=== PATIENT | female | born 1965 | race Caucasian/White ===

== ENCOUNTER 2021-03-25 11:17 | Outpatient (REF) | payer OTHER, SELFPAY ==
[2021-03-25 13:30] LABS: COVID-19 Test Negative (Negative)
== END 2021-03-25 11:18 | disposition home or self-care (01) ==
LOC: HO.LAB 11:17
PROVIDERS: Visit Provider Internal Medicine
DX: Z20.822 Contact with and (suspected) exposure to COVID-19 (principal)
CPT/HCPCS: 36415; 87635; C9803

== ENCOUNTER → 2022-03-03 09:55 | Outpatient (BNVA) | payer OTHER, SELFPAY | PROVIDERS: PCP Student in an Organized Health Care Education/Training Program; Visit Provider Nurse Practitioner Family | DX: N20.0 Calculus of kidney (principal) | CPT/HCPCS: 51798; 99202 ==

== ENCOUNTER 2022-04-05 07:36 | Day surgery (SDC) | payer OTHER, SELFPAY ==
--- NOTE | ~2022-04-05 | FL_ITS ---
EXAMINATION: XR FLUOROSCOPY WITH IMAGES CLINICAL INFORMATION: Retrograde, stent COMPARISON: None. TECHNIQUE: Fluoroscopy Supervised By: Dr. Haider Mendez. Fluoroscopy Time: 49 seconds. Cumulative Dose: 21.33 mGy. Images: 3. FINDINGS: There is some contrast in the left urinary tract. No hydronephrosis or extravasation. Final images show distal left ureteral stent in position. FL/FL guidance in OR IMPRESSION: Fluoroscopy for urologic procedures.
[2022-04-05 08:15] VITALS: BMI 31.4
[2022-04-05 08:36] VITALS: BP 139/82; PULSE 93; RESP 16; TEMP 36.6; O2SAT 95
[2022-04-05 08:38] LABS: Glucose, Whole Blood 132 mg/dL (60-115)
[2022-04-05] MEDS: Lactated Ringers 1,000 ML 100 ML IVCONT (08:42)
--- NOTE | 2022-04-05 08:50 | HO.ANESPROP2 ---
[facility] Active Problems Active Problems: All Active Problems (Updated 03/03/22 @ 13:08 by CHARLEEN Brown) Nephrolithiasis (Acute) Kidney stone (Acute) Past Medical History Medical History (Updated 03/03/22 @ 13:08 by CHARLEEN Brown) delivery delivered Diabetes mellitus, type II Hyperlipidemia Hypertension Hypothyroid Kidney stone Nephrolithiasis Family History Family History (Updated 03/03/22 @ 13:06 by CHARLEEN Brown) Other Kidney stone Family history of problems with anesthesia: No Surgical History Surgical History (Updated 03/03/22 @ 13:08 by CHARLEEN Brown) History of lithotripsy Hx of tubal ligation History of Problems with Anesthesia: No Social History Social History (Updated 03/03/22 @ 13:08 by CHARLEEN Brown) Household Members: Family Patient Tobacco Use Status: Never used Tobacco Use of substances other than those prescribed or required for medical reasons: No Are you DNR?: No Advance Directives: No Advance Directives Information Provided: Yes Meds Allergies Allergy/AdvReac Type Severity Reaction Status Date / Time morphine Allergy Unknown fast hr, Unverified 04/01/22 14:30 palpitations, tachycardia, chestpain lisinopril AdvReac Severe Angioedema Verified 04/05/22 08:18 Active Medications: Current Medications Levofloxacin (Levaquin) 500 mg in 100 mls @ 100 mls/hr IV PREOP ONE Stop: 04/05/22 09:05 Lactated Ringer's (Lr) 1,000 mls @ 100 mls/hr IVCONT .Q10H LEOBARDO Last Admin: 04/05/22 08:42 Dose: 100 mls/hr Home Medications Medication Instructions Recorded Confirmed Last Taken Type albuterol sulfate 90 mcg/actuation 2 puff inhalation Q6H PRN wheezing 03/03/22 04/01/22 Unknown History aerosol inhaler amlodipine 10 mg tablet 10 mg PO DAILY 03/03/22 04/01/22 Unknown History blood sugar diagnostic (FreeStyle #10 ea 03/03/22 Unknown History Lite Strips) blood-glucose meter (FreeStyle #1 ea 03/03/22 Unknown History [place] Lite kit) empagliflozin 10 mg tablet 10 mg PO DAILY 03/03/22 04/01/22 Unknown History (Jardiance) lancets 28 gauge (FreeStyle #100 ea 03/03/22 Unknown History Lancets) levothyroxine 150 mcg tablet 150 mcg PO DAILY 03/03/22 04/01/22 Unknown History metformin 1,000 mg tablet 1,000 mg PO BID 03/03/22 04/01/22 Unknown History simvastatin 20 mg tablet 20 mg PO BEDTIME 03/03/22 04/01/22 Unknown History tamsulosin 0.4 mg capsule 0.4 mg PO DAILY 03/03/22 04/01/22 Unknown History Exam Exam Date and Time: April 05, 2022 0850 Height,Weight and Vital Signs: Height 5 ft 1 in Weight 75.296 kg Last Vital Signs Temp 97.9 F 04/05/22 08:36 Pulse 93 04/05/22 08:36 Resp 16 04/05/22 08:36 BP 139/82 04/05/22 08:36 Pulse Ox 95 04/05/22 08:36 O2 Del Method 04/05/22 08:36 Pertinent Lab Results Pertinent Lab Results: Laboratory Tests 04/05/22 08:35 POC Glucose 132 H Airway Mallampati Class: III TM Dist: >3cm Neck ROM: Full Assessment and Plan Assessment Anesthesia Assessment: Anesthesia Plan Discussed and Chart Reviewed Final Anesthetic Review Family History of Problems with Anesthesia: No History of Problems with Anesthesia: No NPO: Yes ASA Class: II Final Preanesthetic Review: No Changes in Pt Med Stat, Meds/Allgs Chart Reviewed, Consent Obtained/Reviewed and Anes Risks/Benef Reviewed Patient Risk: Low Procedure Risk: Low Anesthetic Plan Anesthetic Plan: GA Disposition: Standard PACU
--- NOTE | 2022-04-05 08:51 | MHC.SHP ---
Pre-Procedural Eval Section A Date of Service: 04/05/22 The patient is an INPATIENT: No Changes since office visit: No Cold of Flu in the past 2 weeks, No New Medical Problems, No Changes in Medication and No Patient answered all questions The History & Physical has been completed within 30 days and I have reviewed it.: Yes Section B Chief Complaint: Calculus of kidney Details of Present Illness: left renal pelvic stone Allergies: Allergies Allergy/AdvReac Type Severity Reaction Status Date / Time morphine Allergy Unknown fast hr, Unverified 04/01/22 14:30 palpitations, tachycardia, chestpain lisinopril AdvReac Severe Angioedema Verified 04/05/22 08:18 Review of Systems Sugical H&P ROS: Negative: Constitution, Cardiovascular, Respiratory, Neurological, Psychiatric, Hem-Onc, Allergic/Immunologic, Gastrointestinal, Genitourinary, Musculoskeletal, Integumentary, Endocrine and Eyes/Ears/Nose/Throat Exam Surgical H&P Exam: Normal: HEENT, Normal: Heart, Normal: Lungs, Normal: Extremities, Normal: Abdomen, Normal: Skin and Normal: Neurological Plan Diagnosis/Plan: Unchanged ( cystoscopy, left retrograde, left flexible ureteroscopy laser lithotripsy) I have reviewed the history and physical and performed a pertinent physical examination on my patient. No changes have occurred unless specified. Time Spent With Patient Time: Total time managing care of this patient today ____ minutes.
[2022-04-05 12:04] VITALS: BP 140/82; PULSE 77; RESP 16; TEMP 36.1; O2SAT 100
--- NOTE | 2022-04-05 12:04 | P.OP_ITS ---
Operative Note Operative Note Date of Service: 04/05/22 Narrative: PreOperative Diagnosis: left renal stone 1.8 cm Post Operative Diagnosis: left renal stone 1.8 cm Procedure: - cystoscopy, left retrograde - left dilatation of ureteric orifice under fluoroscopy - left ureteroscopy, laser lithotripsy, stone basketing - modified 22 laser time 200% longer than typical - left stent placement Surgeon: Dr Haider Mendez Anesthesia: General Indications for procedure: 1.8 cm x 1.6 cm left UPJ stone. Prior procedure 2005. Procedure: After informed consent was verified patient was brought to the operating placed in supine position. Anesthesia was administered per protocol. Patient was placed in modified dorsal lithotomy position and prepped and draped in a sterile fashion. Safety pause time-out and side of surgery confirmed. Antibiotics confirmed. 22 Syrian cystoscope was inserted per urethra. Bladder was normal in its entirety. Both ureteric orifices were in normal position. The Left ureteric orifice was cannulated and a retrograde examination was performed. filling defects seen within the left UPJ. 1.8 cm stone.. A Sensor guidewire was placed up to the level of the renal pelvis under fluoroscopy. The rigid cystoscope was removed and the inner cannula of ureteric access sheath was used under fluoroscopy to dilate the ureteric orifice. The Suction 36cm ureteric access sheath was placed and the inner cannula with access wire removed. The digital flexible ureteral scope was placed. the stone was engaged with a 272 micron holmium fiber. Using the [place] settings the stone was broken into small pieces. This took 200% longer than typical. Approximately 48 minutes of lasing time. The stone was large and could only be broken into small pieces slowly. Or when this had been completed debris was scattered throughout the renal pelvis. Laser was used to continue popcorn technique to break the stone in small pieces. We then used a 0 tip basket with multiple passes to remove clot and stone debris that was able to be managed with the basket. The open-ended catheter was used to flush the renal pelvis on multiple occasions. At the completion of the stone procedure a Sensor wire was placed back into the renal pelvis. A 6 Syrian by 22 cm double-J stent was placed into the renal pelvis and bladder under a combination of fluoroscopy and direct visualization. The symphisis pubis was used as a radiographic marker to release the stent and good coil was seen within the bladder confirming position The bladder was emptied. The patient tolerated the procedure well and was extubated in the operating room, and transferred in stable condition to the recovery area. Pathology: Stones Drains: drain is above
[2022-04-05 12:09] VITALS: BP 142/81; PULSE 83; RESP 14; O2SAT 96
[2022-04-05 12:14] VITALS: BP 144/81; PULSE 84; RESP 16; O2SAT 96
[2022-04-05] MEDS: Phenazopyridine HCL 100 MG TABLET PO (12:18)
[2022-04-05 12:19] VITALS: BP 142/88; PULSE 73; RESP 14; O2SAT 95
[2022-04-05 12:27] VITALS: BP 129/80; TEMP 36.6
[2022-04-10 08:54] LABS: Stone Source LEFT RENAL STONE
== END 2022-04-05 13:15 | disposition home or self-care (01) ==
PROVIDERS: PCP Student in an Organized Health Care Education/Training Program; Visit Provider Urology
PROC: (CPT 52356; principal; 2022-04-05 09:00)
DX: N20.0 Calculus of kidney (principal); E11.9 Type 2 diabetes mellitus without complications; E78.5 Hyperlipidemia, unspecified; I10 Essential (primary) hypertension; E03.9 Hypothyroidism, unspecified; Z79.84 Long term (current) use of oral hypoglycemic drugs; Z79.899 Other long term (current) drug therapy; Z88.8 Allergy status to other drugs, medicaments and biological substances; Z87.442 Personal history of urinary calculi
CPT/HCPCS: 52356; 52352; 82365; 82947; 88300; C1758; C1769; C2617; J0131; J1885; J1956; J2405; J3010; Q9967

== ENCOUNTER 2022-04-13 09:55 | Outpatient (REF) | payer OTHER, SELFPAY | END 2022-04-13 09:56 | disposition home or self-care (01) | LOC: HO.LAB 09:55 | PROVIDERS: PCP Student in an Organized Health Care Education/Training Program; Visit Provider Urology | DX: N39.0 Urinary tract infection, site not specified (principal); A49.9 Bacterial infection, unspecified; N20.0 Calculus of kidney | CPT/HCPCS: 52310; 87086; 99212 ==

== ENCOUNTER 2022-05-05 12:22 | Outpatient (REF) | payer OTHER, SELFPAY ==
--- NOTE | ~2022-05-05 | US_ITS ---
EXAMINATION: US RETROPERITONEAL LIMITED (RENAL ONLY) CLINICAL INFORMATION: Calculus of kidney. COMPARISON: None TECHNIQUE: Real-time imaging of the kidneys. FINDINGS: RIGHT KIDNEY: 12.3 x 4.5 x 4.9 cm (SAG x AP x TRV). The kidney is normal in size, contour, and echogenicity. Renal cortical thickness is normal. There is an upper pole 3 mm echogenic focus consistent with a cyst present. There is a 0.9 cm mid lateral benign hypoechoic Bosniak class I simple renal cyst present. There is mild fullness of the renal collecting system on the right. LEFT KIDNEY: 12.7 x 4.8 x 4.2 cm (SAG x AP x TRV). The kidney is normal in size, contour, and echogenicity. Renal cortical thickness is normal. No focal parenchymal lesions. Multiple renal calculi are seen including 2 in the proximal ureter measuring 1.2 x 0.4 x 0.6 cm and 0.7 x 0.4 x 0.5 cm. There is mild left-sided hydronephrosis. Intrarenal nonobstructing calculi are present. BLADDER: Right ureteral jet is demonstrated; left is not. US/US renal BI IMPRESSION: 1. Mild left-sided hydronephrosis with 2 calculi in the proximal ureter. 2. Mild fullness of the right renal collecting system.
== END 2022-05-05 12:23 | disposition home or self-care (01) ==
LOC: HO.US 12:22
PROVIDERS: Visit Provider Nurse Practitioner Family
DX: N20.0 Calculus of kidney (principal)
CPT/HCPCS: 76775

== ENCOUNTER → 2022-06-02 09:15 | Outpatient (BNVA) | payer OTHER, SELFPAY | PROVIDERS: PCP Student in an Organized Health Care Education/Training Program; Visit Provider Urology | DX: N20.0 Calculus of kidney (principal) | CPT/HCPCS: 99212 ==

== ENCOUNTER 2022-07-28 05:54 | Day surgery (SDC) | payer OTHER, SELFPAY ==
--- NOTE | 2022-07-27 09:18 | HO.ANESPROP2 ---
Documented by User: Nkechi Kessler NP 07/27/22 09:19 HPI - Anesthesia Eval Consult details Narrative: 57yo F for Left ESWL s/p cysto, etc 03/2022 with GA-LMA 4 PMFSH Active Problems Active Problems: All Active Problems (Updated 06/02/22 @ 09:47 by Haider Mendez MD) UTI (urinary tract infection), bacterial (Acute) Nephrolithiasis (Acute) Kidney stone (Acute) Past Medical History Medical History (Updated 07/28/22 @ 06:32 by Rocio Fonseca, RN) Anemia Arthritis Asthma delivery delivered Diabetes mellitus, type II Fibromyalgia Hyperlipidemia Hypertension Hypothyroid Kidney stone Nephrolithiasis Family History Family History Other Kidney stone Family history of problems with anesthesia: No Surgical History Surgical History History of lithotripsy Hx of cystoscopy Hx of tubal ligation History of Problems with Anesthesia: No Social History Social History Household Members: Family Patient Tobacco Use Status: Never used Tobacco Use of substances other than those prescribed or required for medical reasons: No Are you DNR?: No Advance Directives: No Advance Directives Information Provided: Yes Meds Allergies Allergy/AdvReac Type Severity Reaction Status Date / Time morphine Allergy Intermediate fast hr, Verified 07/28/22 06:39 palpitations, tachycardia, chestpain lisinopril AdvReac Severe Angioedema Verified 07/28/22 06:39 Home Medications Medication Instructions Recorded Confirmed Last Taken Type albuterol sulfate 90 mcg/actuation 2 puff inhalation Q6H PRN wheezing 03/03/22 07/28/22 Unknown History aerosol inhaler amlodipine 10 mg tablet 10 mg PO DAILY 03/03/22 07/28/22 Unknown History blood sugar diagnostic (FreeStyle #10 ea 03/03/22 07/28/22 Unknown History Lite Strips) blood-glucose meter (FreeStyle #1 ea 03/03/22 07/28/22 Unknown History [place] Lite kit) empagliflozin 10 mg tablet 10 mg PO DAILY 03/03/22 07/28/22 Unknown History (Jardiance) lancets 28 gauge (FreeStyle #100 ea 03/03/22 07/28/22 Unknown History Lancets) metformin 1,000 mg tablet 1,000 mg PO BID 03/03/22 07/28/22 Unknown History simvastatin 20 mg tablet 20 mg PO BEDTIME 03/03/22 07/28/22 Unknown History Exam Exam Date and Time: July 27, 2022 0918 Assessment and Plan Assessment Anesthesia Assessment: Chart Reviewed Final Anesthetic Review Family History of Problems with Anesthesia: No History of Problems with Anesthesia: No Documented by User: Fly Miller MD 07/28/22 07:52 PMFSH Past Medical History Medical History (Updated 07/28/22 @ 06:32 by Rocio Fonseca RN) Anemia Arthritis Asthma delivery delivered Diabetes mellitus, type II Fibromyalgia Hyperlipidemia Hypertension Hypothyroid Kidney stone Nephrolithiasis Family History Family History Other Kidney stone Surgical History Surgical History History of lithotripsy Hx of cystoscopy Hx of tubal ligation Social History Social History Household Members: Family Patient Tobacco Use Status: Never used Tobacco Use of substances other than those prescribed or required for medical reasons: No Are you DNR?: No Advance Directives: No Advance Directives Information Provided: Yes Meds Allergies Allergy/AdvReac Type Severity Reaction Status Date / Time morphine Allergy Intermediate fast hr, Verified 07/28/22 06:39 palpitations, tachycardia, chestpain lisinopril AdvReac Severe Angioedema Verified 07/28/22 06:39 Home Medications Medication Instructions Recorded Confirmed Last Taken Type albuterol sulfate 90 mcg/actuation 2 puff inhalation Q6H PRN wheezing 03/03/22 07/28/22 Unknown History aerosol inhaler amlodipine 10 mg tablet 10 mg PO DAILY 03/03/22 07/28/22 Unknown History blood sugar diagnostic (FreeStyle #10 ea 03/03/22 07/28/22 Unknown History Lite Strips) blood-glucose meter (FreeStyle #1 ea 03/03/22 07/28/22 Unknown History [place] Lite kit) empagliflozin 10 mg tablet 10 mg PO DAILY 03/03/22 07/28/22 Unknown History (Jardiance) lancets 28 gauge (FreeStyle #100 ea 03/03/22 07/28/22 Unknown History Lancets) metformin 1,000 mg tablet 1,000 mg PO BID 03/03/22 07/28/22 Unknown History simvastatin 20 mg tablet 20 mg PO BEDTIME 03/03/22 07/28/22 Unknown History Exam Airway Mallampati Class: II TM Dist: <=3cm Neck ROM: Full (short neck) Heart: ok Lungs: ok Assessment and Plan Assessment Anesthesia Assessment: Anesthesia Plan Discussed Final Anesthetic Review NPO: Yes ASA Class: III Final Preanesthetic Review: No Changes in Pt Med Stat, Meds/Allgs Chart Reviewed, Consent Obtained/Reviewed and Anes Risks/Benef Reviewed Patient Risk: Intermediate Procedure Risk: Low Anesthetic Plan Anesthetic Plan: MAC: and Agree w/ Assess. and Plan Disposition: Standard PACU
--- NOTE | ~2022-07-28 | XR_ITS ---
EXAMINATION: XR ABDOMEN KUB CLINICAL INDICATION: Left kidney stone COMPARISON: Renal ultrasound from 05/05/2022 TECHNIQUE: AP view of the abdomen. FINDINGS: Lung bases are normal. Bowel gas pattern is normal. Bowel gas and fecal material partially interfere with evaluation of the kidneys. There are no convincing renal stones on this radiographic evaluation. A few phleboliths are seen within the lower pelvis. No ureteral calculi are identified. The visualized bones are intact. No suspicious osseous lesion. XR/XR KUB IMPRESSION: Although small stones were observed on renal ultrasound from 05/05/2022, there are no overt renal stones on this radiographic examination.
--- OUTSIDE RECORDS SUMMARY | 2022-07-28 05:56 | XMS_ITS | Continuity of Care Document ---
Author Name Unknown Organization [facility] Address [address] [place] [address]- Care Team Providers Care Barge Master Name Role Phone Nidia Dill TRAINING ENGINEER, Shanique Primary Care Physician [place] [facility] [place] Date(s): 05/28/21 - 06/27/[address] [id number]- Allergies, Adverse Reactions, Alerts Substance Reaction Severity Status morphine Active lisinopril 1 Angioedema Active 1Pt reports neck and tongue swelling with lisinopril in the past Medications Albuterol (Eqv-ProAir HFA) 90 mcg/inh inhalation aerosol 2 puffs, Inhalation, Every 6 hours, PRN Wheezing/Shortness of Breath, # 8 Gm, 1 Refills, Maintenance, 05/15/21 12:30:00 EST, [id number], Partial fill upon patient request if the prescription is for a schedule II opioid drug., 2 puffs Inhalatio... Start Date: 05/15/21 Status: Ordered Alcohol Wipes See Instructions, # 6 each, Refills 6, Tot. Refills 6, Maintenance, Use to clean your finger beforeblood glucose testing., 05/28/21 18:26:00 EST, Supply, 155, cm, 05/15/21 9:36:00 EST, Height Start Date: 05/28/21 Status: Ordered amLODIPine 10 mg oral tablet 1 tablet = 10 mg, By Mouth, Daily, # 30 tablet, 5 Refills, Maintenance, 12/08/21 20:40:00 EDT, Tablet, [id number], Partial fill upon patient request if the prescription is for a schedule II opioid drug., 155, cm, 06/22/21 9:45:00 EDT, Height Start Date: 12/08/21 Stop Date: 06/06/22 Status: Ordered amLODIPine 10 mg oral tablet 1 tablet = 10 mg, By Mouth, Daily, for 30 days, # 30 tablet, 5 Refills, Hard Stop 12/08/21 20:40:00EDT, 06/11/21 20:40:00 EDT, Tablet, [id number], Partial fill upon patient request if the prescription is for a schedule II opioid drug., 155, c... Start Date: 06/11/21 Stop Date: 12/08/21 Status: Ordered aspirin 81 mg oral delayed release tablet = 81 mg, By Mouth, Daily, # 90 tablet, 3 Refills, Maintenance, 06/11/21 20:41:00 EDT, EC Tablet, [id number], Partial fill upon patient request if the prescription is for a schedule II opioid drug., 155, cm, 06/11/21 9:49:00 EDT, Height Start Date: 06/11/21 Stop Date: 06/06/22 Status: Ordered Blood Pressure Monitor See Instructions, # 1 each, Refills 0, Tot. Refills 0, Maintenance, please check BP at least 3x/week or daily or as she is feeling she is having symptoms., 06/25/21 13:42:00 EDT, Supply Start Date: 06/25/21 Status: Ordered [place] Lite Lancets See Instructions, # 50 each, Refills 8, Tot. Refills 8, Maintenance, E11.9; tests daily, 06/11/21 20:43:00 EDT, Supply, 155, cm, 06/11/21 9:49:00 EDT, Height Start Date: 06/11/21 Status: Ordered [place] Lite Monitor See Instructions, # 1 each, Refills 0, Tot. Refills 0, Maintenance, use as directed for Type 2 Diabetes Mellitus, 05/21/21 9:51:00 EST, Supply, 155, cm, 05/15/21 9:36:00 EST, Height Start Date: 05/21/21 Stop Date: 06/20/21 Status: Ordered [place] Lite Test Strips See Instructions, # 50 each, Refills 8, Tot. Refills 8, Maintenance, Test daily as directed with your Fre[place] Lite glucometer., 06/11/21 20:42:00 EDT, Supply, 155, cm, 06/11/21 9:49:00 EDT, Height Start Date: 06/11/21 Status: Ordered ibuprofen 200 mg oral tablet 2 tablets, By Mouth, Every 6 hours, PRN, As needed for pain. Take with food, # 40 tablet, Refills 0, Maintenance, Pain , Moderate, 06/02/21 8:46:00 EST, Partial fill upon patient request if the prescription is for a schedule II opioid drug. Start Date: 06/02/21 Status: Ordered Jardiance 10 mg oral tablet 1 tablet = 10 mg, By Mouth, Daily in AM, labelin [place]; repalces glipizide, # 30 tablet, 1 Refills, Maintenance, 06/25/21 13:15:00 EDT, [id number], Partial fill upon patient request if the prescription is for a schedule II opioid drug., 155,... Start Date: 06/25/21 Stop Date: 08/24/21 Status: Ordered levothyroxine 200 mcg (0.2 mg) oral capsule 1 capsule = 200 mcg, By Mouth, Daily, Please put directions in Bruneian: Stop ALL other Levothyroxine medications you currently have. Take 1 capsule daily of this Levothyroxine prescription 30 to 60 minutes before breakfast, # 90 capsule, 0 Refil... Start Date: 06/22/21 Status: Ordered metFORMIN 1000 mg oral tablet 1 tablet = 1,000 mg, By Mouth, 2 times a day, # 60 tablet, 1 Refills, Maintenance, 05/15/21 12:24:00 EST, Tablet, [facility]/pharmacy #[id number], Partial fill upon patient request if the prescription is for a schedule II opioid drug., 155, cm, 05/15/21 9:36:00 ES... Start Date: 05/15/21 Status: Ordered Simvastatin = 20 mg, By Mouth, Daily at bedtime, 0 Refills, Maintenance, 12/07/13 3:16:38 EDT Start Date: 12/07/13 Status: Ordered simvastatin 20 mg oral tablet 20 mg, 1, tablet, By Mouth, Daily at bedtime, # 30 tablet, Refills 0, Tot. Refills 0, Maintenance, 06/22/21 10:11:00 EDT, Route to Pharmacy Electronically, [facility]/pharmacy #[id number], Partial fill upon patient request if the prescription is for a schedule II... Start Date: 06/22/21 Status: Ordered Vitamin D3 1000 intl units oral tablet See Instructions, MAT KRISHNAN GERTRUDEAnastasia SHERLYN ESPAÑA, # 30 tablet, 0 Refills, [facility] ST[id number], 155, cm, 06/22/21 9:45:00 EDT, Height Start Date: 06/25/21 Status: Ordered Problem List Condition Effective Dates Status Health Status Inform ant Albuminuria(Confirmed) Active Obese class I(Confirmed) Active Type 2 diabetes mellitus wit h hemoglobin A1c goal of less than 7.0%(Confirmed) Active
--- OUTSIDE RECORDS SUMMARY | 2022-07-28 05:56 | XMS_ITS | Continuity of Care Document ---
Author Name Unknown Organization [facility] Address [address] [place] [id number]- Care Team Providers Care Splitter Tender Name Role Phone Angie Murray Primary Care Physician Encounter [facility] [place] Date(s): 02/18/21 - 03/20/[address] [id number] Allergies, Adverse Reactions, Alerts Substance Reaction Severity Status morphine Active Medications Aspirin = 81 mg, By Mouth, Daily, 0 Refills, Maintenance, 12/07/13 3:15:59 Start Date: 12/07/13 Status: Ordered Ferrous Sulfate = 325 mg, By Mouth, 3 times a day, 0 Refills, Maintenance, 12/07/13 3:15:36 Start Date: 12/07/13 Status: Ordered levothyroxine 0.2 mg oral tablet 1 tablet, By Mouth, Daily, # 30 tablet, 0 Refills, Maintenance, 12/07/13 3:17:24, Tablet Start Date: 12/07/13 Status: Ordered metformin 1000 mg oral tablet 1 tablet, By Mouth, 2 times a day, # 180 tablet, 0 Refills, Maintenance, 12/07/13 3:16:02, Tablet Start Date: 12/07/13 Status: Ordered metoprolol 25 mg oral tablet, extended release 1 tablet, By Mouth, Daily, # 30 tablet, 0 Refills, Maintenance, 12/07/13 3:15:37, ER Tablet Start Date: 12/07/13 Status: Ordered Naproxen = 500 mg, By Mouth, 2 times a day, 0 Refills, Maintenance, 12/07/13 3:17:36 Start Date: 12/07/13 Status: Ordered omeprazole 20 mg oral delayed release tablet 1 tablet, By Mouth, 2 times a day, # 30 tablet, 0 Refills, Maintenance, 12/07/13 15:42:10, EC Tablet, 1 tablet By Mouth 2 times a day Start Date: 12/07/13 Status: Ordered Simvastatin = 40 mg, By Mouth, Daily at bedtime, 0 Refills, Maintenance, 12/07/13 3:16:38 Start Date: 12/07/13 Status: Ordered
--- OUTSIDE RECORDS SUMMARY | 2022-07-28 05:56 | XMS_ITS | Continuity of Care Document ---
Author Name Unknown Organization [facility] Address [address] [place] [id number]- Care Team Providers Care Supervisor Roving Department Name Role Phone Angie Murray Primary Care Physician Encounter [facility] [place] Date(s): 12/31/20 - 01/30/[address] [id number] Allergies, Adverse Reactions, Alerts Substance Reaction Severity [...]
--- OUTSIDE RECORDS SUMMARY | 2022-07-28 05:56 | XMS_ITS | Continuity of Care Document ---
Author Name Unknown Organization [facility] Address [address] [place] [id number]- Care Team Providers Care Mineral Economist Name Role Phone Nidia Dill FILAMENT COIL WINDER, Shanique Primary Care Physician Encounter [facility] [place] Date(s): 01/05/22 - 03/06/[address] [address]- Attending Physician: Not on Staff, Attending MD Allergies, Adverse Reactions, Alerts Substance Reaction Severity Status morphine Active lisinopril 1 Angioedema Active 1Pt reports neck and tongue swelling with lisinopril in the past Medications Albuterol (Eqv-ProAir HFA) 90 mcg/inh inhalation aerosol 2 puffs, Inhalation, Every 6 hours, PRN Wheezing/Shortness of Breath, # 8 Gm, 1 Refills, Maintenance, 05/15/21 12:30:00 EST, [facility]/pharmacy #[id number], Partial fill upon patient request if the [...] Status: Ordered amLODIPine 10 mg oral tablet See Instructions, ELAINA 1 TABLETA POR LA BOCA CADA ETHAN, # 30 tablet, 5 Refills, Maintenance, 02/15/22 11:15:00 EST, [facility], cm, 01/05/22 10:47:00 EDT, Height, 82, kg, 06/29/21 14:25:00 EDT, Dry Weight Start Date: 02/15/22 Status: Ordered aspirin 81 mg oral delayed release tablet = 81 mg, By Mouth, Daily, # 90 tablet, 3 Refills, Maintenance, 06/11/21 20:41:00 EDT, EC Tablet, [facility]/pharmacy #[id number], Partial fill upon patient request if the [...] EDT, Supply Start Date: 06/25/21 Status: Ordered D3 1000 intl units (25 mcg) oral tablet See Instructions, MAT 1 TABLETA RONAK ESPAÑA, # 30 tablet, 2 Refills, Maintenance, 02/15/22 11:15:00 EST, [facility], 155, cm, 01/05/22 10:47:00 EDT, Height, 82, kg, 06/29/21 14:25:00 EDT, Dry Weight Start Date: 02/15/22 Status: Ordered Freestyle Lite Lancets See Instructions, [...] Status: Ordered Jardiance 10 mg oral tablet See Instructions, ELAINA 1 TABLETA POR LA BOCA CADA YURIYANA *REEMPLAZAR GLIPIZIDE*, # 30 tablet, 1 Refills, Maintenance, 02/15/22 11:15:00 EST, [facility], 155, cm, 01/05/22 10:47:00 EDT, Height, 82, kg, 06/29/21 14:25:00 EDT, Dry Weight Start Date: 02/15/22 Status: Ordered levothyroxine 150 mcg (0.15 mg) oral tablet 1 tablet = 150 mcg, By Mouth, Daily, as directed with plenty of water avoid antacids, calcium, or iron for at least 4 hrs before or 4 hrs after as a single daily dose before breakfast on an empty stomach, # 30 tablet, 1 Refills, Maintenance, 01/06... Start Date: 01/06/22 Stop Date: 03/07/22 Status: Ordered metFORMIN 1000 mg oral tablet 1 tablet = 1,000 mg, By Mouth, 2 times a day, with meals, # 60 tablet, 5 Refills, Maintenance, 11/27/21 11:25:00 EDT, [facility]t, [facility] Partial fill upon patient request if the prescription is for a schedule II opioid drug., 155, cm,... Start Date: 11/27/21 Status: Ordered simvastatin 20 mg oral tablet See Instructions, MAT LESTER TABLETA TODOS LOS ESPAÑA AL ACOSTARSE, # 30 tablet, Refills 8, Maintenance, 12/14/21 12:26:00 EDT, Instructions Replace Required Details, Route to Pharmacy Electronically, [facility], 155, cm, 12/01/21 10:47:00 EDT,... Start Date: 12/14/21 Status: Ordered tamsulosin 0.4 mg oral capsule 0.4 mg, 1, capsule, By Mouth, Daily, # 30 capsule, Refills 0, Tot. Refills 0, Maintenance, 11/19/2209:47:00 EDT, [facility] Partial fill upon patient request if the prescription is for a schedule II... Start Date: 11/19/21 Status: Ordered Problem List Condition Confirmation Course Effective Dates Status [facility] atus Informant Albuminuria Confirmed Active Obese class I Confirmed Active Type 2 diabetes mellitus with hemoglobin A1c goal of less than 7.0% Confirmed Active UTI symptoms Confirmed Active Patient Care team information Care Team Personnel Name: Shanique Jean Baptiste NP Position: S PCO Associate Professional Member Role: PCP Address: Address: [address] [place] [address]- Care Team Related Persons Name: LYLE DONNELLY Address: home [address] [place] [address] Name: DAT TORRES
--- OUTSIDE RECORDS SUMMARY | 2022-07-28 05:56 | XMS_ITS | Continuity of Care Document ---
Author Name Unknown Organization [facility] Address [address] [place] [address]- Care Team Providers Care Meteorology Instructor Name Role Phone Nidia Dill LABORER POULTRY HATCHERY, Shanique Primary Care Physician Encounter [facility] [place] Date(s): 07/23/21 - 08/22/[address] [address]- Allergies, Adverse Reactions, Alerts Substance Reaction Severity [...] # 30 tablet, 5 Refills, Hard Stop 06/06/22 20:40:00EDT, 12/08/21 20:40:00 EDT, Tablet, [id number], Partial fill upon patient request if the prescription is for a schedule II opioid drug., 155, c... Start Date: 12/08/21 Stop Date: 06/06/22 Status: Ordered amLODIPine 10 mg oral tablet 1 tablet = 10 mg, By Mouth, Daily, for 30 days, # 30 tablet, 5 Refills, Hard Stop 12/08/21 20:40:00EDT, 06/11/21 20:40:00 EDT, Tablet, [facility]/pharmacy #[id number], Partial fill upon patient request if the prescription is for a schedule II opioid drug., 155, c... Start Date: 06/11/21 Stop Date: 12/08/21 Status: Ordered amLODIPine 10 mg oral tablet 1 tablet = 10 mg, By Mouth, Daily, for 30 days, # 30 tablet, 5 Refills, Hard Stop 12/03/22 20:40:00EDT, 06/06/22 20:40:00 EDT, Tablet, [facility], Partial fill upon patient request if the prescription is for a schedule II opioid drug.... Start Date: 06/06/22 Stop Date: 12/03/22 Status: Ordered aspirin 81 mg oral delayed release tablet = 81 mg, By Mouth, Daily, # 90 tablet, 3 Refills, Maintenance, 06/11/21 20:41:00 EDT, EC Tablet, [facility]/pharmacy #[id number], Partial fill upon patient request if [...] 10 mg, By Mouth, Daily in AM, for 30 days, labelin Citizen Of [place]; repalces glipizide, # 30 tablet, 1 Refills, Hard Stop 08/24/21 13:15:00 EDT, 06/25/21 13:15:00 EDT, [facility]/pharmacy #[id number], Partial fill upon patient request if the prescription is for... Start Date: 06/25/21 Stop Date: 08/24/21 Status: Ordered Jardiance 10 mg oral tablet 1 tablet = 10 mg, By Mouth, Daily in AM, labelin Citizen Of [place]; repalces glipizide, # 30 tablet, 1 Refills, Maintenance, 10/23/21 13:15:00 EDT, [facility], Partial fill upon patient requestif the prescription is for a schedule II opioid sintia... Start Date: 10/23/21 Stop Date: 12/22/21 Status: Ordered levothyroxine 200 mcg (0.2 mg) oral capsule 1 capsule = 200 mcg, By Mouth, Daily, Please put directions in Citizen Of [place]: Stop ALL other Levothyroxine medications you currently have. Take 1 capsule daily of this Levothyroxine prescription 30 to 60 minutes before breakfast, # 90 capsule, 0 Refil... Start Date: 07/23/21 Status: Ordered simvastatin 20 mg oral tablet See Instructions, DEVANE LESTER TABLETA RONAK ESPAÑA AL TRELLOSTBRITTNEY, # 30 tablet, Refills 0, Tot. Refills 0, 07/23/21 17:28:00 EDT, Instructions Replace Required Details, Route to Pharmacy Electronically,[facility], 155, cm, 06/29/21 14:25... Start Date: 07/23/21 Status: Ordered Vitamin D3 1000 intl units oral tablet See Instructions, EDVANE LESTER TABLETA RONAK ESPAÑA, # 30 tablet, 2 Refills, 07/23/21 17:27:00 EDT, [facility], 155, cm, 06/29/21 14:25:00 EDT, Height, 82, kg, 06/29/21 14:25:00 EDT, Dry Weight Start Date: 07/23/21 Status: Ordered Problem List Condition Effective Dates Status Health Status Inform ant Albuminuria(Confirmed) Active Obese class I(Confirmed) Active Type 2 diabetes mellitus wit h hemoglobin A1c goal of less than 7.0%(Confirmed) Active
--- OUTSIDE RECORDS SUMMARY | 2022-07-28 05:56 | XMS_ITS | Continuity of Care Document ---
Author Name Unknown Organization [facility] Address [address] [place] [address]- Care Team Providers Care Crown Attacher Name Role Phone Nidia Dill NP, Shanique Primary Care Physician Encounter [facility] [place] Date(s): 02/15/22 - 03/17/[address] [address]- Allergies, Adverse Reactions, Alerts Substance Reaction Severity Status morphine Active lisinopril 1 Angioedema Active 1Pt reports neck and tongue swelling with lisinopril in the past Medications Albuterol (Eqv-ProAir HFA) 90 mcg/inh inhalation aerosol 2 puffs, Inhalation, Every 6 hours, PRN Wheezing/Shortness of Breath, # 8 Gm, 1 Refills, Maintenance, 05/15/21 12:30:00 EST, [facility]/pharmacy #[id number], Partial fill upon patient request if the [...] tablet, 5 Refills, Maintenance, 02/15/22 11:15:00 EST, [facility], 155, cm, 01/05/22 10:47:00 EDT, Height, 82, kg, 06/29/21 14:25:00 EDT, Dry Weight Start Date: 02/15/22 Status: Ordered aspirin 81 mg oral delayed release tablet = 81 mg, By Mouth, Daily, # 90 tablet, 3 Refills, Maintenance, 06/11/21 20:41:00 EDT, EC Tablet, [facility]/pharmacy #[id number], Partial fill upon patient request if the [...] units (25 mcg) oral tablet See Instructions, TOMPhyllis 1 TABLETA ALLENAnastasia PLATA ESPAÑA, # 30 tablet, 2 Refills, Maintenance, 02/15/22 11:15:00 EST, [facility], 155, cm, 01/05/22 10:47:00 EDT, Height, [...] ELAINA 1 TABLETA POR LA BOCA CADA MANANA *REEMPLAZAR GLIPIZIDE*, # 30 tablet, 1 Refills, Maintenance, 02/15/22 11:15:00 EST, [facility], 155, cm, 01/05/22 10:47:00 EDT, Height, 82, kg, 06/29/21 14:25:00 EDT, Dry Weight Start Date: 02/15/22 Status: Ordered levothyroxine 150 mcg (0.15 mg) oral tablet See Instructions, ELAINA 1 TABLETAA POR LA BOCA CADA ETHAN ANTES DE DESAYUNO EN [place] VACIO. ELAINA CON AGUA., # 30 tablet, 1 Refills, Maintenance, 03/16/22 15:38:00 EST, [facility], 155, cm, 01/05/22 10:47:00 EDT, Height, 82, kg, 06/29/21 14... Start Date: 03/16/22 Status: Ordered metFORMIN 1000 mg oral tablet 1 tablet = 1,000 mg, By Mouth, 2 times a day, with meals, # 60 tablet, 5 Refills, Maintenance, 11/27/21 11:25:00 EDT, Tablet, [facility] Partial fill upon patient request if the prescription is for a schedule II opioid drug., 155, cm,... Start Date: 11/27/21 Status: Ordered simvastatin 20 mg oral tablet See Instructions, TOME LESTER TABLETA TODOS LOS ESPAÑA AL ACOSTARSE, # 30 tablet, Refills 8, Maintenance, 12/14/21 12:26:00 EDT, Instructions Replace Required Details, Route to Pharmacy Electronically, [facility], 155, cm, 12/01/21 10:47:00 EDT,... Start Date: 12/14/21 Status: Ordered tamsulosin 0.4 mg oral capsule 0.4 mg, 1, capsule, By Mouth, Daily, # 30 capsule, Refills 0, Tot. Refills 0, Maintenance, 11/19/2209:47:00 EDT, [facility] Partial fill upon patient request if the prescription is for a schedule II... Start Date: 11/19/21 Status: Ordered Problem List Condition Confirmation Course Effective Dates Status Health atus Informant Albuminuria Confirmed Active Obese class I Confirmed Active Type 2 diabetes mellitus with hemoglobin A1c goal of less than 7.0% Confirmed Active UTI symptoms Confirmed Active Patient Care team information Care Team Personnel Name: Shanique Jean Baptiste NP Position: S PCO Associate Professional Member Role: PCP Address: Address: [address] [place] [address]- Care Team Related Persons Name: LYLE DONNELLY Address: home [address] [place] [address] Name: DAT TORRES
--- OUTSIDE RECORDS SUMMARY | 2022-07-28 05:56 | XMS_ITS | Continuity of Care Document ---
Author Name Unknown Organization [facility] Address [address] [place] [address]- Care Team Providers Care Block Tester Name Role Phone Nidia Dill MACHINE MOLDER SQUEEZE, Shanique Primary Care Physician En[facility] [place] Date(s): 05/29/21 - 06/28/[address] [address]- Allergies, Adverse Reactions, Alerts Substance Reaction Severity [...] Stop 12/08/21 20:40:00EDT, 06/11/21 20:40:00 EDT, Tablet, [facility]/pharmacy #[id number], Partial fill upon patient request if the prescription is for a schedule II opioid drug., 155, c... Start Date: 06/11/21 Stop Date: 12/08/21 Status: Ordered aspirin 81 mg oral delayed release tablet = 81 mg, By Mouth, Daily, # 90 tablet, 3 Refills, Maintenance, 06/11/21 20:41:00 EDT, EC Tablet, [facility]/pharmacy #[id number], Partial fill upon patient request [...] mg, By Mouth, Daily in AM, labelin Indonesian; repalces glipizide, # 30 tablet, 1 Refills, Maintenance, 06/25/21 13:15:00 EDT, [id number], Partial fill upon patient request if the prescription is for a schedule II opioid drug., 155,... Start Date: 06/25/21 Stop Date: 08/24/21 Status: Ordered levothyroxine 200 mcg (0.2 mg) oral capsule 1 capsule = 200 mcg, By Mouth, Daily, Please put directions in Indonesian: Stop ALL other Levothyroxine medications you currently have. Take 1 capsule daily of this Levothyroxine prescription 30 to 60 minutes before breakfast, # 90 capsule, 0 Refil... Start Date: 06/22/21 Status: Ordered metFORMIN 1000 mg oral tablet 1 tablet = 1,000 mg, By Mouth, 2 times a day, # 60 tablet, 1 Refills, Maintenance, 05/15/21 12:24:00 EST, Tablet, [facility]/pharmacy #[id number], Partial fill upon patient request [...] 06/22/21 10:11:00 EDT, Route to Pharmacy Electronically, [facility]/pharmacy #[id number], Partial fill upon patient request if the prescription is for a schedule II... Start Date: 06/22/21 Status: Ordered Vitamin D3 1000 intl units oral tablet See Instructions, MAT KRISHNAN GERTRUDEAnatsasia SHERLYN ESPAÑA, # 30 tablet, 0 Refills, [id number], 155, cm, 06/22/21 9:45:00 EDT, Height Start Date: 06/25/21 Status: Ordered Problem List Condition Effective Dates Status Health Status Inform ant Albuminuria(Confirmed) Active Obese class I(Confirmed) Active Type 2 diabetes mellitus wit h hemoglobin A1c goal of less than 7.0%(Confirmed) Active
--- OUTSIDE RECORDS SUMMARY | 2022-07-28 05:56 | XMS_ITS | Continuity of Care Document ---
Author Name Unknown Organization [facility] Address [address] [place] [address]- Care Team Providers Care Journal Entry Audit Clerk Name Role Phone Nidia Dill NP, Shanique Primary Care Physician Encounter [facility] [place] [place] [facility] [id number] Date(s): 04/22/22 - 05/22/[address] [address]- Attending Physician: Admtr, Ar8 Admitting Physician: Admtr, Ar8 Referring Physician: Admtr, Ar8 Allergies, Adverse Reactions, Alerts Substance Reaction Severity Status morphine Active lisinopril 1 Angioedema Active 1Pt reports neck and tongue swelling with lisinopril in the past Medications Albuterol (Eqv-ProAir HFA) 90 mcg/inh inhalation aerosol 2 puffs, Inhalation, Every 6 hours, PRN Wheezing/Shortness of Breath, # 8 Gm, 1 Refills, Maintenance, 05/15/21 12:30:00 EST, [facility]/pharmacy #[id number], Partial fill upon patient request if the prescription is for a schedule II opioid drug., 2 puffs Inhalatio... Start Date: 05/15/21 Status: Ordered Alcohol Wipes See Instructions, # 6 each, Refills 6, Tot. Refills 6, Maintenance, Use to clean your finger beforeblood glucose testing., 05/28/21 18:26:00 EST, [facility], 155, cm, 05/15/21 9:36:00 EST, Height Start Date: 05/28/21 Status: Ordered amLODIPine 10 mg oral tablet See Instructions, ELAINA 1 TABLETA POR LA BOCA CADA ETHAN, # 30 tablet, 5 Refills, Maintenance, 02/15/22 11:15:00 EST, [facility], [facility], cm, 01/05/22 10:47:00 EDT, Height, 82, kg, 06/29/21 14:25:00 EDT, Dry Weight Start Date: 02/15/22 Status: Ordered aspirin 81 mg oral delayed release tablet = 81 mg, By Mouth, Daily, # 90 tablet, 3 Refills, Maintenance, 06/11/21 20:41:00 EDT, EC Tablet, [facility]/pharmacy #[id number], Partial fill upon patient request if the [...] oral tablet See Instructions, MAT 1 TABLETA GERTRUDEAnastasia SHERLYN ESPAÑA, # 30 tablet, 2 Refills, Maintenance, 05/19/22 12:59:00 EST, [facility], 155, cm, 04/22/22 9:46:00 EST, Height, 82, kg, 06/29/21 14:25:00 EDT, Dry Weight Start Date: 05/19/22 Status: Ordered Freestyle Lite Lancets See Instructions, [...] GLIPIZIDE*, # 30 tablet, 1 Refills, Maintenance, 04/26/22 16:43:00 EST, [facility], 155, cm, 04/22/22 9:46:00 EST, Height, 82, kg, 06/29/21 14:25:00 EDT, Dry Weight Start Date: 04/26/22 Status: Ordered levothyroxine 150 mcg (0.15 mg) oral tablet See Instructions, ELAINA 1 TABLETAA POR LA BOCA CADA ETHAN ANTES DE DESAYUNO EN [place] VACIO. ELAINA CON AGUA., # 30 tablet, 1 Refills, Maintenance, 03/16/22 15:38:00 EST, [facility], 155, cm, 01/05/22 10:47:00 EDT, Height, 82, kg, 06/29/21 14... Start Date: 03/16/22 Status: Ordered metFORMIN 1000 mg oral tablet 1 tablet = 1,000 mg, By Mouth, 2 times a day, with meals, # 60 tablet, 5 Refills, Maintenance, 11/27/21 11:25:00 EDT, Tablet, [facility] Partial fill upon patient request if the prescription is for a schedule II opioid drug., 155, cm,... Start Date: 11/27/21 Status: Ordered simvastatin 20 mg oral tablet See Instructions, TOME LESTER TABLETA TODOS LOS ESPAÑA AL ACOSTARSE, # 30 tablet, Refills 8, Maintenance, 12/14/21 12:26:00 EDT, Instructions Replace Required Details, Route to Pharmacy Electronically, [facility], 155, cm, 12/01/21 10:47:00 EDT,... Start Date: 12/14/21 Status: Ordered tamsulosin 0.4 mg oral capsule 0.4 mg, 1, capsule, By Mouth, Daily, # 30 capsule, Refills 0, Tot. Refills 0, Maintenance, 11/19/2209:47:00 EDT, [facility]ically[facility] Partial fill upon patient request if the prescription is for a schedule II... Start Date: 11/19/21 Status: Ordered Problem List Condition Confirmation Course Effective Dates Status [facility] atus Informant Albuminuria Confirmed Active Obese class I Confirmed Active Type 2 diabetes mellitus with hemoglobin A1c goal of less than 7.0% Confirmed Active UTI symptoms Confirmed Active Patient Care team information Care Team Personnel Name: Shanique Jean Baptiste NP Position: [facility] PCO Associate Professional Member Role: PCP Address: Address: [address] [place] [address]- Care Team Related Persons Name: LYLE DONNELLY Address: home [address] [place] [address] Name: DAT TORRES
--- OUTSIDE RECORDS SUMMARY | 2022-07-28 05:56 | XMS_ITS | Continuity of Care Document ---
Author Name Unknown Organization [facility] Address [address] [place] [address]- Care Team Providers Care Airplane Pilot Name Role Phone Nidia Dill NP, Shanique Primary Care Physician Encounter [facility] Date(s): 05/20/21 - 06/24/[address] [address]- Attending Physician: Saji Vazquez MD Referring Physician: Shanique Jean Baptiste NP Allergies, Adverse Reactions, Alerts Substance Reaction Severity [...] Daily, # 30 tablet, 5 Refills, Maintenance, 06/11/21 20:40:00 EDT, Tablet, [id number], Partial fill upon patient request if the prescription is for a schedule II opioid drug., 155, cm, 06/11/21 9:49:00 EDT, Height Start Date: 06/11/21 Stop Date: 12/08/21 Status: Ordered aspirin 81 mg oral delayed release tablet = 81 mg, By Mouth, Daily, # 90 tablet, 3 Refills, Maintenance, 06/11/21 20:41:00 EDT, EC Tablet, [facility]/pharmacy #[id number], Partial fill upon patient request if the prescription is for a schedule II opioid drug., 155, cm, 06/11/21 9:49:00 EDT, Height Start Date: 06/11/21 Stop Date: 06/06/22 Status: Ordered Blood Pressure Monitor See Instructions, # 1 each, Refills 0, Tot. Refills 0, Maintenance, please check BP at least 3x/week or daily or as she is feeling she is having symptoms., 05/15/21 10:13:00 EST, Supply, 155, cm, 05/15/21 9:36:00 EST, Height Start Date: 05/15/21 Status: Ordered Freestyle Lite Lancets See Instructions, [...] mg, By Mouth, Daily in AM, labelin Chadian; repalces glipizide, # 30 tablet, 1 Refills, Maintenance, 06/22/21 10:12:00 EDT, [facility]/pharmacy #[id number], Partial fill upon patient request if the prescription is for a schedule II opioid drug., 155,... Start Date: 06/22/21 Stop Date: 08/21/21 Status: Ordered levothyroxine 200 mcg (0.2 mg) oral capsule 1 capsule = 200 mcg, By Mouth, Daily, Please put directions in Chadian: Stop ALL other Levothyroxine medications you currently have. Take 1 capsule daily of this Levothyroxine prescription 30 to 60 minutes before breakfast, # 90 capsule, 0 Refil... Start Date: 06/22/21 Status: Ordered metFORMIN 1000 mg oral tablet 1 tablet = 1,000 mg, By Mouth, 2 times a day, # 60 tablet, 1 Refills, Maintenance, 05/15/21 12:24:00 EST, Tablet, [facility]/pharmacy #[id number], Partial fill upon patient [...] 06/22/21 10:11:00 EDT, Route to Pharmacy Electronically, [facility]/pharmacy #[id number], Partial fill upon patient request if the prescription is for a schedule II... Start Date: 06/22/21 Status: Ordered Vitamin D3 1000 intl units oral tablet 1 tablet = 25 mcg, By Mouth, Daily, # 30 tablet, 0 Refills, Maintenance, 06/02/21 17:22:00 EST, Tablet, [facility]/pharmacy #[id number], Partial fill upon patient request if the prescription is for a schedule II opioid drug., 155, cm, 06/01/21 14:15:00 EST, Height Start Date: 06/02/21 Status: Ordered Problem List Condition Effective Dates Status Health Status Inform ant Albuminuria(Confirmed) Active Obese class I(Confirmed) Active Type 2 diabetes mellitus wit h hemoglobin A1c goal of less than 7.0%(Confirmed) Active
--- OUTSIDE RECORDS SUMMARY | 2022-07-28 05:56 | XMS_ITS | Continuity of Care Document ---
Author Name Unknown Organization [facility] Address [address] [place] [address]- Care Team Providers Care Fur Trimmer Name Role Phone Nidia Dill RESEARCH DIETITIAN, Shanique Primary Care Physician Encounter [facility] Date(s): 04/23/22 - 05/23/[address] [address]- Allergies, Adverse Reactions, Alerts Substance Reaction Severity Status morphine Active lisinopril 1 Angioedema Active 1Pt reports neck and tongue swelling with lisinopril in the past Medications Albuterol (Eqv-ProAir HFA) 90 mcg/inh inhalation aerosol 2 puffs, Inhalation, Every 6 hours, PRN Wheezing/Shortness of Breath, # 8 Gm, 1 Refills, Maintenance, 05/15/21 12:30:00 EST, [facility]/pharmacy #[id number], Partial fill upon patient request if the [...] tablet, 5 Refills, Maintenance, 02/15/22 11:15:00 EST, [facility], 155, cm, 01/05/22 10:47:00 EDT, Height, 82, kg, 06/29/21 14:25:00 EDT, Dry Weight Start Date: 02/15/22 Status: Ordered aspirin 81 mg oral delayed release tablet = 81 mg, By Mouth, Daily, # 90 tablet, 3 Refills, Maintenance, 06/11/21 20:41:00 EDT, EC Tablet, [facility]/pharmacy #[id number], Partial fill upon patient request if the [...] units (25 mcg) oral tablet See Instructions, TOME 1 TABLETA RONAK PLATA ESPAÑA, # 30 tablet, 2 Refills, Maintenance, 05/19/22 12:59:00 EST, [facility], 155, cm, 04/22/22 9:46:00 EST, Height, [...] tablet, 1 Refills, Maintenance, 04/26/22 16:43:00 EST, [facility], 155, cm, 04/22/22 9:46:00 EST, Height, 82, kg, 06/29/21 14:25:00 EDT, Dry Weight Start Date: 04/26/22 Status: Ordered levothyroxine 150 mcg (0.15 mg) oral tablet See Instructions, ELAINA 1 TABLETAA POR LA BOCA CADA ETHAN ANTES DE DESAYUNO EN [place]OM[place] VACIO. ELAINA CON AGUA., # 30 tablet, 1 Refills, Maintenance, 03/16/22 15:38:00 EST, [facility], 155, cm, 01/05/22 10:47:00 EDT, Height, 82, kg, 06/29/21 14... Start Date: 03/16/22 Status: Ordered metFORMIN 1000 mg oral tablet 1 tablet = 1,000 mg, By Mouth, 2 times a day, with meals, # 60 tablet, 5 Refills, Maintenance, 11/27/21 11:25:00 EDT, Tablet, [facility], Partial fill upon patient request if the prescription is for a schedule II opioid drug., 155, cm,... Start Date: 11/27/21 Status: Ordered simvastatin 20 mg oral tablet See Instructions, TOME LESTER TABLETA TODOS LOS ESPAÑA AL ACOSTARSE, # 30 tablet, Refills 8, Maintenance, 12/14/21 12:26:00 EDT, Instructions Replace Required Details, Route to Pharmacy Electronically, [facility], 155, cm, 12/01/21 10:47:00 EDT,... Start Date: 12/14/21 Status: Ordered tamsulosin 0.4 mg oral capsule 0.4 mg, 1, capsule, By Mouth, Daily, # 30 capsule, Refills 0, Tot. Refills 0, Maintenance, 11/19/2209:47:00 EDT, [facility] fill upon patient request if the prescription is for a schedule II... Start Date: 11/19/21 Status: Ordered Problem List Condition Confirmation Course Effective Dates Status [facility] atus Informant Albuminuria Confirmed Active Obese class I Confirmed Active Type 2 diabetes mellitus with hemoglobin A1c goal of less than 7.0% Confirmed Active UTI symptoms Confirmed Active Patient Care team information Care Team Personnel Name: Shanique Jean Baptiste NP Position: S PCO Associate Professional Member Role: PCP Address: Address: [address] [place] [address]- Care Team Related Persons Name: LYLE DONNELLY Address: home [address] [place] [address] Name: DAT TORRES
--- OUTSIDE RECORDS SUMMARY | 2022-07-28 05:56 | XMS_ITS | Continuity of Care Document ---
Author Name Unknown Organization [facility] Address [address] [place] [address]- Care Team Providers Care Clutch Mechanic Name Role Phone Angie Murray Primary Care Physician ( [phone] Encounter [facility] Date(s): 02/18/21 - 04/29/[address] [address] Attending Physician: Not on Staff, Attending MD [...]
--- OUTSIDE RECORDS SUMMARY | 2022-07-28 05:56 | XMS_ITS | Continuity of Care Document ---
Author Name Unknown Organization [facility] Address [address] [place] [address]- Care Team Providers Care Coat Feller Name Role Phone Nidia Dill NP, Shanique Primary Care Physician [place] [facility] Date(s): 02/04/22 - 04/15/[address] [address]- Attending Physician: Not on Staff, Attending MD Allergies, Adverse Reactions, Alerts Substance Reaction Severity Status morphine Active lisinopril 1 Angioedema Active 1Pt reports neck and tongue swelling with lisinopril in the past Medications Albuterol (Eqv-ProAir HFA) 90 mcg/inh inhalation aerosol 2 puffs, Inhalation, Every 6 hours, PRN Wheezing/Shortness of Breath, # 8 Gm, 1 Refills, Maintenance, 05/15/21 12:30:00 EST, [facility]/pharmacy #[id number], Partial fill upon patient request if the [...] 02/15/22 11:15:00 EST, [facility], 155, cm, 01/05/22 10:47:00 EDT, Height, 82, kg, 06/29/21 14:25:00 EDT, Dry Weight Start Date: 02/15/22 Status: Ordered aspirin 81 mg oral delayed release tablet = 81 mg, By Mouth, Daily, # 90 tablet, 3 Refills, Maintenance, 06/11/21 20:41:00 EDT, EC Tablet, [facility]/pharmacy #[id number], Partial fill upon patient request if the [...] tablet, 2 Refills, Maintenance, 02/15/22 11:15:00 EST, [facility], 155, cm, 01/05/22 10:47:00 EDT, Height, [...] tablet, 1 Refills, Maintenance, 02/15/22 11:15:00 EST, [facility], 155, cm, 01/05/22 10:47:00 EDT, Height, 82, kg, 06/29/21 14:25:00 EDT, Dry Weight Start Date: 02/15/22 Status: Ordered levothyroxine 150 mcg (0.15 mg) oral tablet See Instructions, ELAINA 1 TABLETAA POR LA BOCA CADA ETHAN ANTES DE DESAYUNO EN [place] VACIO. ELAINA CON AGUA., # 30 tablet, 1 Refills, Maintenance, 03/16/22 15:38:00 EST, [facility], 155, cm, 01/05/22 10:47:00 EDT, Height, 82, kg, 06/29/21 14... Start Date: 03/16/22 Status: Ordered metFORMIN 1000 mg oral tablet 1 tablet = 1,000 mg, By Mouth, 2 times a day, with meals, # 60 tablet, 5 Refills, Maintenance, 11/27/21 11:25:00 EDT, Tablet, [facility] Partial fill upon patient request if the prescription is for a schedule II opioid drug., 155, cm,... Start Date: 11/27/21 Status: Ordered simvastatin 20 mg oral tablet See Instructions, TOME LESTER TABLETA TODOS LOS ESPAÑA AL ACOSTARSE, # 30 tablet, Refills 8, Maintenance, 12/14/21 12:26:00 EDT, Instructions Replace Required Details, Route to Pharmacy Electronically, [facility], 155, cm, 12/01/21 10:47:00 EDT,... Start Date: 12/14/21 Status: Ordered tamsulosin 0.4 mg oral capsule 0.4 mg, 1, capsule, By Mouth, Daily, # 30 capsule, Refills 0, Tot. Refills 0, Maintenance, 11/19/2209:47:00 EDT, [facility], Partial fill upon patient request if the prescription is for a schedule II... Start Date: 11/19/21 Status: Ordered Problem List Condition Confirmation Course Effective Dates Status [facility] atus Informant Albuminuria Confirmed Active Obese class I Confirmed Active Type 2 diabetes mellitus with hemoglobin A1c goal of less than 7.0% Confirmed Active UTI symptoms Confirmed Active Patient Care team information Care Team Personnel Name: Nidia Dill NP, Shanique Position: S PCO Associate Professional Member Role: PCP Address: Address: [address] [place] [address]- Care Team Related Persons Name: LYLE DONNELLY Address: [address] [place] [address] Name: DAT TORRES
--- OUTSIDE RECORDS SUMMARY | 2022-07-28 05:56 | XMS_ITS | Continuity of Care Document ---
Author Name Unknown Organization [facility] Address [address] [place] [address]- Care Team Providers Care Grain Oilseed Or Pasture Farm Worker Name Role Phone Nidia Dill NP, Shanique Primary Care Physician En[place] [facility] Date(s): 04/23/22 - 05/23/[address] [address]- Allergies, Adverse Reactions, Alerts Substance Reaction Severity Status morphine Active lisinopril 1 Angioedema Active 1Pt reports neck and tongue swelling with lisinopril in the past Medications Albuterol (Eqv-ProAir HFA) 90 mcg/inh inhalation aerosol 2 puffs, Inhalation, Every 6 hours, PRN Wheezing/Shortness of Breath, # 8 Gm, 1 Refills, Maintenance, 05/15/21 12:30:00 EST, [facility]/pharmacy #[id number], Partial fill upon patient request if the [...] tablet, 5 Refills, Maintenance, 02/15/22 11:15:00 EST, [facility], 155, cm, 01/05/22 10:47:00 EDT, Height, 82, kg, 06/29/21 14:25:00 EDT, Dry Weight Start Date: 02/15/22 Status: Ordered aspirin 81 mg oral delayed release tablet = 81 mg, By Mouth, Daily, # 90 tablet, 3 Refills, Maintenance, 06/11/21 20:41:00 EDT, EC Tablet, [facility]/pharmacy #[id number], Partial fill upon patient request if the [...] mcg) oral tablet See Instructions, MAT 1 TABLETMigue PLATA ESPAÑA, # 30 tablet, 2 Refills, Maintenance, 05/19/22 12:59:00 EST, [facility], 155, cm, 04/22/22 [...] tablet, 1 Refills, Maintenance, 04/26/22 16:43:00 EST, [facility], 155, cm, 04/22/22 9:46:00 EST, Height, 82, kg, 06/29/21 14:25:00 EDT, Dry Weight Start Date: 04/26/22 Status: Ordered levothyroxine 150 mcg (0.15 mg) oral tablet See Instructions, ELAINA 1 TABLETAA POR LA BOCA CADA ETHAN ANTES DE DESAYUNO EN [place] VACIO. ELAINA CON AGUA., # 30 tablet, 1 Refills, Maintenance, 03/16/22 15:38:00 EST, [facility], 155, cm, 01/05/22 10:47:00 EDT, Height, 82, kg, 06/29/21 14... Start Date: 03/16/22 Status: Ordered metFORMIN 1000 mg oral tablet 1 tablet = 1,000 mg, By Mouth, 2 times a day, with meals, # 60 tablet, 5 Refills, Maintenance, 11/27/21 11:25:00 EDT, Tablet, [facility]., Partial fill upon patient request if the prescription is for a schedule II opioid drug., 155, cm,... Start Date: 11/27/21 Status: Ordered simvastatin 20 mg oral tablet See Instructions, TOME LESTER TABLETA TODOS LOS ESPAÑA AL ACOSTARSE, # 30 tablet, Refills 8, Maintenance, 12/14/21 12:26:00 EDT, Instructions Replace Required Details, [facility], [facility], 155, cm, 12/01/21 10:47:00 EDT,... Start Date: 12/14/21 Status: Ordered tamsulosin 0.4 mg oral capsule 0.4 mg, 1, capsule, By Mouth, Daily, # 30 capsule, Refills 0, Tot. Refills 0, Maintenance, 11/19/2209:47:00 EDT, Route to Pharmacy Electronically, [facility], Partial fill upon patient request if the prescription is for a schedule II... Start Date: 11/19/21 Status: Ordered Problem List Condition Confirmation Course Effective Dates Status [facility] atus Informant Albuminuria Confirmed Active Obese class I Confirmed Active Type 2 diabetes mellitus with hemoglobin A1c goal of less than 7.0% Confirmed Active UTI symptoms Confirmed Active Patient Care team information Care Team Personnel Name: Shanique Jean Baptiste NP Position: S PCO Associate Professional Member Role: PCP Address: Address: [address] [place] [address]- Care Team Related Persons Name: LYLE DONNELLY Address: home [address] [place] [address] Name: DAT TORRES
--- OUTSIDE RECORDS SUMMARY | 2022-07-28 05:56 | XMS_ITS | Continuity of Care Document ---
Author Name Unknown Organization [facility] Address [address] [place] [address]- Care Team Providers Care Yarding And Folding Machine Operator Name Role Phone Nidia Dill NP, Shanique Primary Care Physician Encounter [facility] Date(s): 03/31/21 - 06/10/[address] [address]- Attending Physician: Dejon Mcbride MD Admitting Physician: Dejon Mcbride MD Allergies, Adverse Reactions, Alerts Substance Reaction Severity Status morphine Active Medications Albuterol (Eqv-ProAir HFA) 90 mcg/inh inhalation aerosol 2 puffs, Inhalation, Every 6 hours, PRN Wheezing/Shortness of Breath, # 8 Gm, 1 Refills, Maintenance, 05/15/21 12:30:00 EST, [id number], Partial fill upon patient request if the [...] mg, By Mouth, Daily, # 30 tablet, 0 Refills, Maintenance, 06/02/21 8:48:00 EST, Tablet, Partial fill upon patient request if the prescription is for a schedule II opioid drug. Start Date: 06/02/21 Status: Ordered Aspirin = 81 mg, By Mouth, Daily, 0 Refills, Maintenance, 12/07/13 3:15:59 Start Date: 12/07/13 Status: Ordered Blood Pressure Monitor See Instructions, # 1 each, Refills 0, Tot. Refills 0, Maintenance, please check BP at least 3x/week or daily or as she is feeling she is having symptoms., 05/15/21 10:13:00 EST, Supply, 155, cm, 05/15/21 9:36:00 EST, Height Start Date: 05/15/21 Status: Ordered Freestyle Traci Monitor See Instructions, # 1 each, Refills 0, Tot. Refills 0, Maintenance, Please: check your blood sugarsdaily in the morning and/or when you feel your blood sugar is high or low. Please record blood sugar values and bring your meter and recorded results... Start Date: 05/21/21 Stop Date: 06/20/21 Status: Ordered Freestyle Lite Monitor See Instructions, # 1 each, Refills 0, Tot. Refills 0, Maintenance, use as directed for Type 2 Diabetes Mellitus, 05/21/21 9:51:00 EST, Supply, 155, cm, 05/15/21 9:36:00 EST, Height Start Date: 05/21/21 Stop Date: 06/20/21 Status: Ordered Freestyle Lite Test Strips See Instructions, # 6 each, Refills 6, Tot. Refills 6, Maintenance, Use as directed with your Freestyle Lite glucometer., 05/21/21 9:52:00 EST, Supply, 155, cm, 05/15/21 9:36:00 EST, Height Start Date: 05/21/21 Status: Ordered glipiZIDE 5 mg oral tablet 5 mg, 1, tablet, By Mouth, 2 times a day, Refills 0, Maintenance, 06/02/21 8:44:00 EST, Partial fill upon patient request if the prescription is for a schedule II opioid drug. Start Date: 06/02/21 Status: Ordered ibuprofen 200 mg oral tablet 2 tablets, By Mouth, Every 6 hours, PRN, As needed for pain. Take with food, # 40 tablet, Refills 0, Maintenance, Pain , Moderate, 06/02/21 8:46:00 EST, Partial fill upon patient request if the prescription is for a schedule II opioid drug. Start Date: 06/02/21 Status: Ordered levothyroxine 0.088 mg oral tablet 1 tablet = 88 mcg, By Mouth, Daily, # 30 tablet, 0 Refills, Maintenance, 06/02/21 8:45:00 EST, Tablet, Partial fill upon patient request if the prescription is for a schedule II opioid drug. Start Date: 06/02/21 Status: Ordered levothyroxine 150 mcg (0.15 mg) oral tablet 1 tablet = 150 mcg, By Mouth, Daily, # 30 tablet, 0 Refills, Maintenance, 06/02/21 8:45:00 EST, Tablet, Partial fill upon patient request if the prescription is for a schedule II opioid drug. Start Date: 06/02/21 Status: Ordered metFORMIN 1000 mg oral tablet 1 tablet = 1,000 mg, By Mouth, 2 times a day, # 60 tablet, 1 Refills, Maintenance, 05/15/21 12:24:00 EST, Tablet, [id number], Partial fill upon patient request if the prescription is for a schedule II opioid drug., 155, cm, 05/15/21 9:36:00 ES... Start Date: 05/15/21 Status: Ordered Simvastatin = 20 mg, By Mouth, Daily at bedtime, 0 Refills, Maintenance, 12/07/13 3:16:38 EDT Start Date: 12/07/13 Status: Ordered tolnaftate 1% topical cream 1 application, Topically, 2 times a day, for 14 days, Apply thin layer to soles of feet. Place dry cotton socks on after as to avoid slipping/falls., # 30 Gm, 1 Refills, Acute 06/12/21 17:06:00 EDT, 05/15/21 17:06:00 EST, Cream, [id number], Pa... Start Date: 05/15/21 Stop Date: 06/12/21 Status: Ordered Vitamin D3 1000 intl units oral tablet 1 tablet = 25 mcg, By Mouth, Daily, # 30 tablet, 0 Refills, Maintenance, 06/02/21 17:22:00 EST, Tablet, [id number], Partial fill upon patient request if the prescription is for a schedule II opioid drug., 155, cm, 06/01/21 14:15:00 EST, Height Start Date: 06/02/21 Status: Ordered Problem List Condition Effective Dates Status Health Status Inform ant Obese class I(Confirmed) Active Type 2 diabetes mellitus wit h hemoglobin A1c goal of less than 7.0%(Confirmed) Active
--- OUTSIDE RECORDS SUMMARY | 2022-07-28 05:56 | XMS_ITS | Continuity of Care Document ---
Author Name Unknown Organization [facility] Address [address] [place] [address]- Care Team Providers Care Learning Center Coordinator Name Role Phone Nidia Dill PLATE FITTER, Shanique Primary Care Physician Encounter [facility] [id number] Date(s): 06/29/21 - 07/29/[address] [address]- Attending Physician: AdmtrAris Admitting Physician: Admtr, [id number] Referring Physician: Admtr, [...] Stop 12/08/21 20:40:00EDT, 06/11/21 20:40:00 EDT, Tablet, [facility]/pharmacy #[id number], Partial fill upon patient request if the prescription is for a schedule II opioid drug., 155, c... Start Date: 06/11/21 Stop Date: 12/08/21 Status: Ordered amLODIPine 10 mg oral tablet 1 tablet = 10 mg, By Mouth, Daily, for 30 days, # 30 tablet, 5 Refills, Hard Stop 12/03/22 20:40:00EDT, 06/06/22 20:40:00 EDT, Tablet, [facility], Partial fill upon patient request if the prescription is for a schedule II opioid drug.... Start Date: 06/06/22 Stop Date: 12/03/22 Status: Ordered aspirin 81 mg oral delayed release tablet = 81 mg, By Mouth, Daily, # 90 tablet, 3 Refills, Maintenance, 06/11/21 20:41:00 EDT, EC Tablet, [facility]/pharmacy #[id number], Partial fill upon patient request [...] Daily in AM, for 30 days, labelin Bahamian; repalces glipizide, # 30 tablet, 1 Refills, Hard Stop 08/24/21 13:15:00 EDT, 06/25/21 13:15:00 EDT, [facility]/pharmacy #[id number], Partial fill upon patient request if the prescription is for... Start Date: 06/25/21 Stop Date: 08/24/21 Status: Ordered Jardiance 10 mg oral tablet 1 tablet = 10 mg, By Mouth, Daily in AM, labelin Bahamian; repalces glipizide, # 30 tablet, 1 Refills, Maintenance, 10/23/21 13:15:00 EDT, [facility], Partial fill upon patient requestif the prescription is for a schedule II opioid sintia... Start Date: 10/23/21 Stop Date: 12/22/21 Status: Ordered levothyroxine 200 mcg (0.2 mg) oral capsule 1 capsule = 200 mcg, By Mouth, Daily, Please put directions in Bahamian: Stop ALL other Levothyroxine medications you currently have. Take 1 capsule daily of this Levothyroxine prescription 30 to 60 minutes before breakfast, # 90 capsule, 0 Refil... Start Date: 07/23/21 Status: Ordered simvastatin 20 mg oral tablet See Instructions, MAT BATISTA TABLETA RONAK LONGS AL ACOSTARSE, # 30 tablet, Refills 0, Tot. Refills 0, 07/23/21 17:28:00 EDT, Instructions Replace Required Details, Route to Pharmacy Electronically,[facility], 155, cm, 06/29/21 14:25... Start Date: 07/23/21 Status: Ordered Vitamin D3 1000 intl units oral tablet See Instructions, MAT LESTER TABLETA RONAK PLATA ESPAÑA, # 30 tablet, 2 Refills, 07/23/21 17:27:00 EDT, [facility], 155, cm, 06/29/21 14:25:00 EDT, Height, 82, kg, 06/29/21 14:25:00 EDT, Dry Weight Start Date: 07/23/21 Status: Ordered Problem List Condition Effective Dates Status Health Status Inform ant Albuminuria(Confirmed) Active Obese class I(Confirmed) Active Type 2 diabetes mellitus wit h hemoglobin A1c goal of less than 7.0%(Confirmed) Active
[2022-07-28 06:33] VITALS: BMI 31.9
[2022-07-28 06:54] VITALS: BP 145/80; PULSE 93; RESP 16; TEMP 36.2; O2SAT 95
[2022-07-28 07:01] LABS: Glucose, Whole Blood 178 mg/dL (60-115)
[2022-07-28] MEDS: Lactated Ringers 1,000 ML 100 ML IVCONT (07:03)
--- NOTE | 2022-07-28 07:39 | MHC.SHP ---
Pre-Procedural Eval Section A Date of Service: 07/28/22 The patient is an INPATIENT: No Changes since office visit: No Cold of Flu in the past 2 weeks, No New Medical Problems, No Changes in Medication and No Patient answered all questions The History & Physical has been completed within 30 days and I have reviewed it.: No Section B Chief Complaint: Calculus of kidney Details of Present Illness: left renal stones Relevant Social History: None Present Medications: see Short Stay Collaborative assessment Medical History: No relevant PMH History of Previous Operations: Relevant previous surgery/procedure and date(s) Allergies: Allergies Allergy/AdvReac Type Severity Reaction Status Date / Time morphine Allergy Intermediate fast hr, Verified 07/28/22 06:39 palpitations, tachycardia, chestpain lisinopril AdvReac Severe Angioedema Verified 07/28/22 06:39 Review of Systems Sugical H&P ROS: Negative: Constitution, Cardiovascular, Respiratory, Neurological, Psychiatric, Hem-Onc, Allergic/Immunologic, Gastrointestinal, Genitourinary, Musculoskeletal, Integumentary, Endocrine and Eyes/Ears/Nose/Throat Exam Surgical H&P Exam: Normal: HEENT, Normal: Heart, Normal: Lungs, Normal: Extremities, Normal: Abdomen, Normal: Skin and Normal: Neurological Plan Diagnosis/Plan: Unchanged (left eswl) I have reviewed the history and physical and performed a pertinent physical examination on my patient. No changes have occurred unless specified. Time Spent With Patient Time: Total time managing care of this patient today ____ minutes.
--- NOTE | 2022-07-28 08:07 | W.PM.OPN ---
Operative Note Operative Note Date of Service: 07/28/22 Narrative: PreOperative Diagnosis: left Renal stones Post Operative Diagnosis: left Renal stones Procedure: left ESWL Surgeon: Dr Haider Mendez Anesthesia: mac/sedation Indications for procedure: The patient understands ESWL may be a staged procedure and subsequent intervention may be required based on imaging after ESWL. Quoted stone clearance rates for a solitary procedure are in the 70-80% range based primarily on stone location. They also understand there is a risk of bleeding to the kidney, infection, damage to adjacent organs, and stone migration following the procedure. - Imaging left 6mm with smaller fragments Procedure: After informed consent was verified the patient was brought to the operating room and placed in a supine position. Anesthesia was performed per protocol. Safety pause time-out was performed. Imaging was displayed in the room and laterality confirmed. ESWL was performed. The 1st 500 shocks were performed at 60 hertz. These were performed with increasing power. Once maximum power was reached the rate was increased to 180 hertz. A total of 2500 shocks were given. Targeted imaging with ultrasound/fluoroscopy showed stone smudging suggestive of disintegration. The patient tolerated the procedure well and was transferred to the recovery area upon completion. Post procedure imaging will be organized. There was no evidence for flank discoloration.
[2022-07-28 08:16] VITALS: BP 151/86; PULSE 89; RESP 16; TEMP 36.4; O2SAT 94
[2022-07-28] MEDS: Acetaminophen 325 MG TABLET 975 MG PO (08:26)
[2022-07-28] MEDS: oxyCODONE HCl Immed Release 5 MG TABLET PO (08:27)
[2022-07-28 08:31] VITALS: BP 152/84; PULSE 84; RESP 16; O2SAT 97
[2022-07-28 08:46] VITALS: BP 142/74; PULSE 80; RESP 16; O2SAT 98
== END 2022-07-28 10:05 | disposition home or self-care (01) ==
PROVIDERS: PCP Student in an Organized Health Care Education/Training Program; Visit Provider Urology
PROC: (CPT 50590; principal; 2022-07-28 07:30)
DX: N20.0 Calculus of kidney (principal); I10 Essential (primary) hypertension; E11.9 Type 2 diabetes mellitus without complications
CPT/HCPCS: 50590; 74018; 82947; J1885; J1940; J3010